=== PATIENT | female | born 1955 | race Caucasian/White ===

== ENCOUNTER 2018-03-16 08:38 | Inpatient (IN) ==
--- NOTE | 2018-03-15 22:19 | Discharge Summary ---
<Precious Zuniga - Last Filed: 03/16/18 08:05> Date of Encounter: 03/16/18 - Discharge Diagnosis (1) Status post total knee replacement, right Priority: Primary Status: Acute (2) Arthritis of knee, right Priority: Primary Status: Acute (3) HTN (hypertension) Priority: Secondary Status: Chronic Qualifiers: Hypertension type: essential hypertension Qualified Code(s): I10 - Essential (primary) hypertension - Hospital Course Hospital course: Ms. Diaz is a 62 year old female - Time Spent with Patient Total time spent providing and/or coordinating discharge services: - Discharge Medications Home Medications: Aspirin Enteric Coated [Aspirin EC] 325 mg PO BID #20 tablet. 03/15/18 [Rx] OxyCODONE Immed Rel [Roxicodone 5 MG] 5 mg PO Q6HR PRN 7 Days #28 tablet [Rx] Etodolac 400 mg PO BID 03/16/18 [History] Metoprolol Succinate [Toprol Xl] 25 mg PO DAILY 03/16/18 [History] Pantoprazole Sodium [Protonix] 40 mg PO DAILY 03/16/18 [History] Allergies/Adverse Reactions: 3 Allergy/AdvReac Type Severity Reaction Status Date / Time No Known Allergies Allergy Verified 03/16/18 09:33 Primary care physician: Maribeth Garcia CNP - Patient Status Disposition: Home Health Service Condition: Good - Discharge Instructions Follow Up With: Maribeth Garcia CNP [Primary Care Provider] - Hemant Payne DO [Family Provider] - <Adryan Clayton Dominik - Last Filed: 03/18/18 06:45> Orders not resulted at time of discharge: Pending orders 03/16/18 00:01 XR knee RT limited 1-2V [XR] Routine H/H [Hemoglobin and Hematocrit] [HEME] Routine Date of Encounter: 03/18/18 Time of Encounter: 06:44 - Discharge Diagnosis (1) Status post total knee replacement, right Priority: Primary Status: Acute (2) Arthritis of knee, right Priority: Primary Status: Chronic (3) HTN (hypertension) Priority: Secondary Status: Chronic Qualifiers: Hypertension type: essential hypertension Qualified Code(s): I10 - Essential (primary) hypertension (4) Acute blood loss anemia Priority: Primary Status: Acute - Hospital Course Hospital course: Ms. Diaz is a 62 year old female Status post right total knee replacement. The patient had an uneventful postoperative course. They received antibiotics and physical therapy and were discharged in stable condition. There will follow -up in the office in 2 weeks. - Time Spent with Patient Total time spent providing and/or coordinating discharge services: Primary care physician: Maribeth Garcia CNP - Patient Status Functional capacity at discharge: uses cane/walker Overall status at discharge: patient is progressing back to baseline
[2018-03-16] MEDS ORDERED: CeFAZolin Syr 2,000MG/20 ML 2,000 MG/20 ML SYRINGE IVPB ONE (08:54)
[2018-03-16] MEDS ORDERED: Albuterol 2.5 MG/3 ML NEBULIZER IH ONE ×2 (08:54→09:32)
--- NOTE | 2018-03-16 08:57 | History & Physical Report ---
Date of Encounter: 03/16/18 Time of Encounter: 08:56 24 Hour HP Update - Instructions Instructions: If the History and Physical is less than 30 days old and was completed prior to A.M. admission and or procedure and has NOT been updated on calendar day of procedure please complete this update prior to performing procedure. - Update Patient reports changes in Medical Condition: No Changes in examination, assessment, or condition: No Changes in Medication: No Preop tests/diagnostics Reviewed: Yes Surgery Remains Indicated: Yes Consent for Planned Operative Procedure(s) Verified: Yes - Pre-Operative Checklist Preoperative Checklist Indicated: No Prophylactic Antibiotic Ordered: Yes Is VTE Prophylaxis Indicated?: Yes
[2018-03-16] MEDS ORDERED: Ringers Solution, Lactated 1,000 ML IVC SCH ×2 (09:00→09:45)
[2018-03-16] MEDS ORDERED: Morphine Sulfate/PF 5mg/10mL Vial ONE (09:09)
[2018-03-16] MEDS ORDERED: ROPIVACAINE HCL/PF 0.5% 30 ML VIAL ONE (09:09)
[2018-03-16] MEDS ORDERED: Ethanol\\Acetic Acid\\Na Ace\\Ben 1,000 ML IRRIG.SOLN IR ONE (09:11)
[2018-03-16] MEDS ORDERED: Propofol 500 MG/50 ML INFUS..BTL ONE (09:21)
--- NOTE | 2018-03-16 09:22 | Anesthesia Evaluation PreOp ---
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 03/15/18 [Rx] OxyCODONE Immed Rel [Roxicodone 5 MG] 5 mg PO Q6HR PRN 7 Days #28 tablet [Rx] 3 Allergy/AdvReac Type Severity Reaction Status Date / Time No Known Allergies Allergy Verified 12/20/17 14:24 - Meds/Allergy Pre-op Review Medications Reviewed: Yes Allergies Reviewed: Yes Beta Blockers on Current Med List: Yes If Beta Blockers taken, Date/Time (Last Dose taken): 03-16-18 metoprolol 6 am Anesthesia Results - Labs Laboratory Tests 03/08/18 03/08/18 03/08/18 08:43 08:43 08:43 WBC 6.8 Hgb 13.2 Hct 39.4 Plt Count 212 PT 10.9 INR 1.0 APTT 31.1 Sodium 138 Potassium 4.5 Chloride 103 Carbon Dioxide 26 BUN 23 Creatinine 0.88 Est GFR ( Amer) > 60 Est GFR (Non-Af Amer) > 60 BUN/Creatinine Ratio 26 Glucose 87 Calculated Osmolality 289 Calcium 10.2 - Imaging EKG: report reviewed, image reviewed (SINUS RHYTHM INFERIOR MYOCARDIAL INFARCTION [40+ ms Q WAVE AND/OR ST/T ABNORMALITY IN II/aVF], PROBABLY OLD) Anesthesia Exam Last Vital Signs Temp 98.1 F 03/16/18 08:57 Pulse 68 03/16/18 08:57 Resp 18 03/16/18 08:57 BP 159/86 03/16/18 08:57 Pulse Ox 99 03/16/18 08:57 Weight: 92 kg NPO (# of Hours): > 8 hrs - HEENT Pupil (Motor): Pupils equal, EOMI Mallampati: III Teeth: Missing Oral Opening: Greater than 3 - DIGITAL SALES ASSISTANT LOC: Oriented DIGITAL SALES ASSISTANT Motor: Normal RUE, Normal LUE, Normal RLE, Normal LLE, Normal Face - Cardiac Rhythm: Regular Murmur: None - Pulmonary Breath Sounds: bilateral Clear Respiratory Effort: Symmetrical Anesthesia Assess/Plan ASA Score: 2 Modified [place] Scale for Level of Consciousness: Cooperative, oriented, and tranquil Anesthetic Plan: Regional (Spinal), MAC Monitoring Plan: Standard Monitors Recovery Plan: PACU
[2018-03-16] MEDS ORDERED: Lidocaine -MPF 2% 2 ML VIAL ONE (09:24)
[2018-03-16] MEDS ORDERED: *HR* FentaNYL (PF) 100 MCG/2 ML VIAL ONE (09:24)
[2018-03-16] MEDS ORDERED: Dexamethasone 4 MG/ML VIAL ONE (09:24)
[2018-03-16] MEDS ORDERED: Ondansetron 4 MG/2 ML VIAL ONE (09:24)
[2018-03-16] MEDS ORDERED: *HR* Midazolam HCl 2 MG/2 ML VIAL ONE (09:24)
[2018-03-16] MEDS ORDERED: *HR* Propofol 200 MG/20 ML VIAL IVP ONE (09:24)
[2018-03-16] MEDS ORDERED: Naloxone 0.4 MG/ML INJ IVP PRN ×2 (09:32→11:54)
[2018-03-16] MEDS ORDERED: *HR* Promethazine 25 MG/ML VIAL IVP PRN ×2 (09:32→18:27)
[2018-03-16] MEDS ORDERED: *HR* OxyCODONE Immed Rel 5 MG TABLET PO PRN (09:32)
[2018-03-16] MEDS ORDERED: Ondansetron 4 MG/2 ML VIAL IVP ONE (09:32)
[2018-03-16] MEDS ORDERED: *HR* HYDROmorphone 2 MG TABLET PO PRN (09:32)
[2018-03-16] MEDS ORDERED: *HR* Meperidine 25 MG/ML SYRINGE IVP PRN (09:32)
--- NOTE | 2018-03-16 10:10 | Anesthesia Procedures ---
Date of Encounter: 03/16/18 Time of Encounter: 09:48 Procedures: Anesthesia - Epidural/Spinal Patient ID/Chart reviewed: Yes Patient examined: Yes Consent Obtained: Yes Supplemental Oxygen: Nasal Cannula Supplemental Oxygen Rate (L/min): 2 Sedation: Versed (mg): 2 Sedation: Fentanyl (mcg): 100 Site Prep: Aseptic Technique, Sterile prep and drape, 0.5% Chlorhexidine/Alcohol Patient position: upright Local Anesthetic: Lidocaine 1% Amount of Local Anesthetic used: 3 Interspace Used: L3-L4 Blood: No CSF: Yes Paresthesia: No Spinal Needle Gauge: 25 (pencan) Spinal Dose: 2.5ml of 0.5%bupivacaine with 0.2mg duramorph Procedure: pt tolerated procedure well. no complications. vss. Vitals + FHT's: Vital Signs/O2 Sat/Glucose, Most Current Temp Pulse Resp BP Pulse Ox 03/16/18 09:38 64 16 142/92 97 03/16/18 08:57 98.1 F 18 159/86 99 - Nerve Block Procedure Date: 03/16/18 Time: 10:10 Surgical Procedure: right tka robotic Checklist: Correct Patient Identifier, Correct procedure, History checked Correct side: Right Blood Thinner: No Monitor Applied: EKG, BP, Pulse Oximetry Supplemental Oxygen via Nasal Cannula (L/min): 2 (see spinal note for versed and fentanyl) Indication: Post Op Analgesia (request per surgeon) Pre-op Neuro Deficits: No Block Type: Other (adductor canal ) Catheter placed: No Sterile Technique: Yes Ultrasound used: Yes Anatomy identified: Yes Visual spread of Local: Yes Neuro Stimulation: No Blood on Needle Aspiration: No Smooth Injection of Local: Yes Pain with Injection of Local: No Prep: Chlorhexadine Needle: 21 x 100 mm Stimuplex Local: Ropivacaine (0.5%) Volume (cc): 30 Number of Attempts: 1 Complications: None/effective block Vitals: Vital Signs/O2 Sat/Glucose, Most Current Temp Pulse Resp BP Pulse Ox 03/16/18 09:38 64 16 142/92 97 03/16/18 08:57 98.1 F 68 18 159/86 99 Comments: pt tolerated procedure well. no complications. vss.
[2018-03-16] MEDS ORDERED: EPHEDrine 50 MG/ML VIAL ONE (10:20)
--- NOTE | 2018-03-16 10:58 | Orthopedic Operative Note ---
Date of procedure: 03/16/18 Pre-op diagnosis: Right knee arthritis Post-op diagnosis: same Procedure: Procedure: Right robotic-assisted Total knee replacement Estimated blood loss: 200 cc Hardware: Metal and polyethylene replacement. Reasnor Femur: 5 Tibia: 5 TS insert: 11 Patella: 36 Exam Under anesthesia: 17 degree flexion contracture 16 degree varus as calculated by the robot full flexion and no instability Procedural Notes: Grade 4 arthritic changes all 3 compartments. Operative procedure: The patient was brought to the operating room and placed on the operating room table. After general anesthesia was administered the operative knee was examined. Findings were noted in the exam under anesthesia. The operative extremity was prepped and draped in sterile surgical fashion. The patient received IV antibiotics prior to skin incision. A standard midline incision was made centered over the patella. The incision was made through the skin and subcutaneous tissue. A medial parapatellar tendon approach was performed. Care was taken to preserve tissue along the medial aspect of the patella. And to protect the patella tendon. The deep MCL was released off the medial tibia. The infra patella fat pad was excised. The patella was everted and cut was made at the level of the insertion of the quadriceps and patella tendon. The patella was sized to a 36 the guide was seated and the lug holes are drilled. Knee was brought into flexion. Patient noted to have grade 4 arthritic changes all 3 compartments. Steinmann pins were placed in the tibia and the femur for the tibial and femoral arrays respectively. Checkpoints were also placed in the tibia and the femur for calculation purposes. The knee including the femur and the tibial registered. Osteophytes, ACL and PCL were excised at this point. Extension and flexion were assessed with a valgus stress components were adjusted on the computer to balance the knee. Femoral cuts were made first with robotic assistance, these included the anterior cut posterior cuts chamfer cuts. Tibial cut was then performed with robotic assistance as well. Bone fragments were removed, as well as the medial and lateral meniscus. The size 5 femoral guide was seated box cut was made lug holes are drilled. The size 5 tibial tray was seated and prepared with the fin cutter. Trial reduction with the 11 TS Vee revealed extension of 0 degree and 6 degree varus full flexion. No varus valgus instability. Trial reduction revealed excellent patella tracking. All trial components were removed all bony surfaces were irrigated. The Tibia was seated followed by the femur, The Vee size 11 was seated and secured patella. Patient had similar findings for motion and stability. The knee was closed by the PA. The knee was then irrigated out with 2 L of pulse irrigation. The extensor mechanism was closed with #2 FiberWire suture and #2 PDS suture. The subcutaneous tissue was then irrigated and closed deep with #1 PDS suture superficially with 0 PDS suture and skin was closed with zip tie The patient was then placed in a sterile dressing and a postoperative brace extubated and transferred to recovery room in stable condition. Anesthesia: GETA Surgeon: Adryan Clayton Was there an magistrate assistant present: Yes Stock Parts Inspector: Precious Zuniga Estimated blood loss (cc): 200 Condition: stable Disposition: PACU
[2018-03-16] MEDS ORDERED: Sennosides 8.6 MG TABLET PO PRN (11:54)
[2018-03-16] MEDS ORDERED: MOM Conc 10 ML UD.LIQ PO PRN (11:54)
[2018-03-16] MEDS ORDERED: *HR* OxyCODONE/APAP 5/325 TABLET PO PRN (11:54)
[2018-03-16] MEDS ORDERED: traMADol 50 MG TABLET PO PRN (11:54)
[2018-03-16] MEDS ORDERED: Ondansetron 4 MG/2 ML VIAL IVP PRN (11:54)
[2018-03-16] MEDS ORDERED: Temazepam 15 MG CAPSULE PO PRN (11:54)
--- NOTE | 2018-03-16 12:03 | Anesthesia Evaluation Post Op ---
Date of Encounter: 03/16/18 Time of Encounter: 12:03 - Vital Signs Vital Signs: Last Vital Signs Temp 97.8 F 03/16/18 11:32 Pulse 62 03/16/18 11:52 Resp 18 03/16/18 11:52 BP 114/67 03/16/18 11:52 Pulse Ox 94 03/16/18 11:52 - Lungs Lungs: Clear Ascult./Percussion - Airway Airway: Non-obstructed - Cardiovascular Regular Rate - Mental Status Mental Status: Alert & Oriented, Answers Appropriately - Pain Pain Scale: 3 - Nausea Vomiting Nausea Vomiting: Not Present - Hydration Hydration: NPO - Discharge PostOp Status: Transfer Patient to floor
[2018-03-16 12:06] LABS: Hematocrit 34.5 % (35.3-44.9); Hemoglobin 11.7 g/dL (11.5-15.4)
[2018-03-16] MEDS: Ringers Solution, Lactated 1,000 ML IVC SCH (12:36)
[2018-03-16] MEDS: *HR* Enoxaparin 30 MG/0.3 ML SYRINGE SQ SCH (17:26)
[2018-03-16] MEDS ORDERED: *HR* Enoxaparin 30 MG/0.3 ML SYRINGE SQ SCH (18:00)
[2018-03-17 01:35] LABS: Hematocrit 31.9 % (35.3-44.9); Hemoglobin 10.6 g/dL (11.5-15.4)
[2018-03-17 01:49] LABS: BUN/Creatinine Ratio 33 (6-26); Blood Urea Nitrogen 27 mg/dL (8-23); Calcium 9.2 mg/dL (8.6-10.3); Carbon Dioxide 27 mEq/L (23-29); Chloride 104 mEq/L (98-107); Glucose 141 mg/dL (70-105); Osmolality,Calculated 293 (280-300); Sodium 138 mEq/L (136-145); eGFR For African Americans > 60 (> 60); eGFR For Non-African Americans > 60 (> 60)
[2018-03-17] MEDS: Ringers Solution, Lactated 1,000 ML IVC SCH (05:29)
[2018-03-17] MEDS: *HR* Enoxaparin 30 MG/0.3 ML SYRINGE SQ SCH ×2 (05:54→17:54)
--- NOTE | 2018-03-17 08:24 | Orthopedics Progress Note ---
Date of Encounter: 03/17/18 Time of Encounter: 08:23 - Assessment and Plan (1) Status post total knee replacement, right Current Visit: No Status: Acute (2) Arthritis of knee, right Current Visit: No Status: Chronic (3) HTN (hypertension) Current Visit: No Status: Chronic Qualifiers: Hypertension type: essential hypertension Qualified Code(s): I10 - Essential (primary) hypertension Subjective Interval history: Patient was seen this morning doing well without complaints. Afebrile vital signs stable. Operative extremity: Neurovascularly intact Dressing clean dry and intact Calves nontender Assessment and plan: Continue with postoperative care Hematocrit 31 Objective Vital signs: Vital Signs Temp Pulse Resp BP Pulse Ox 03/17/18 08:05 97.6 F 66 18 100/65 95 03/17/18 03:38 97.6 F 72 14 93/61 95 03/16/18 23:04 97.5 F L 73 14 98/63 94 03/16/18 18:50 97.8 F 73 16 108/75 95 03/16/18 15:40 97.5 F L 69 17 119/73 95 03/16/18 14:34 97.5 F L 68 14 119/73 97 03/16/18 13:25 97.5 F L 62 14 125/82 89 03/16/18 12:52 97.4 F L 60 14 110/67 94 03/16/18 12:16 97.6 F 62 14 120/76 94 03/16/18 12:02 97.3 F L 61 16 115/68 94 03/16/18 11:52 62 18 114/67 94 03/16/18 11:42 67 16 110/67 97 03/16/18 11:32 97.8 F 69 14 108/66 94 03/16/18 09:38 64 16 142/92 97 03/16/18 08:57 98.1 F 68 18 159/86 99 Intake and Output 03/16/18 03/17/18 03/17/18 23:59 07:59 15:59 Intake Total 410 / 410 1250 / 1250 Output Total 210 / 210 800 / 800 Balance 200 / 200 450 / 450 Intake: IV Fluids 100 / 100 1000 / 1000 Lactated Ringers 1,000 ML @ 75 1000 / 1000 mls/hr IVC .[id number] [facility] Rx#: [id number] Ancef 2,000 MG In 0.9 % Sodium 100 / 100 Chloride 100 ML @ 200 mls/hr IVPB Q8HR [facility] Rx#:[id number] Oral 310 / 310 250 / 250 Output: Urine 0 / 0 800 / 800 Emesis 100 / 100 Other 110 / 110 - Labs CBC & BMP: 03/17/18 01:00 03/17/18 01:00 Labs: Abnormal lab results Hgb 10.6 g/dL (11.5-15.4) L 03/17/18 01:00 Hct 31.9 % (35.3-44.9) L 03/17/18 01:00 BUN 27 mg/dL (8-23) H 03/17/18 01:00 BUN/Creatinine Ratio 33 (6-26) H 03/17/18 01:00 Glucose 141 mg/dL (70-105) H 03/17/18 01:00 - VTE Documentation of Mechanical Device: Venous foot pump, device Consult Discharge Plan - Plan Referrals: Maribeth Garcia CNP [Primary Care Provider] - Hemant Payne DO [Family Provider] -
[2018-03-17] MEDS: Metoprolol XL (24 HR) Succ 25 MG TAB.ER.24H PO SCH (08:51)
[2018-03-17] MEDS: *HR* OxyCODONE Immed Rel 5 MG TABLET PO PRN ×2 (14:52→20:58)
--- NOTE | 2018-03-17 21:17 | Event Note ---
Date of Encounter: 03/17/18 Time of Encounter: 12:30 PCR - POD#1 R TKR - Patient seen at bedside. Patient was seen this morning doing well, without complaints. Afebrile, vital signs stable. Labs reviewed. H/H - stable, asymptomatic Pain control: adequate Participating in PT. All questions and concerns addressed. Educated on use of incentive spirometer. Encouraged ambulation and proper hydration. Patient educated on post-operative restrictions and post-operative care. Assessment and plan: Continue with postoperative care Discharge plan: Home, discharge WEDNESDAY.
[2018-03-18 01:18] LABS: Hematocrit 26.8 % (35.3-44.9); Hemoglobin 8.9 g/dL (11.5-15.4)
[2018-03-18 01:37] LABS: BUN/Creatinine Ratio 30 (6-26); Blood Urea Nitrogen 20 mg/dL (8-23); Calcium 8.6 mg/dL (8.6-10.3); Carbon Dioxide 28 mEq/L (23-29); Chloride 100 mEq/L (98-107); Glucose 129 mg/dL (70-105); Osmolality,Calculated 282 (280-300); Potassium 4.2 mEq/L (3.5-5.1); Sodium 134 mEq/L (136-145); eGFR For African Americans > 60 (> 60); eGFR For Non-African Americans > 60 (> 60)
[2018-03-18] MEDS: *HR* OxyCODONE Immed Rel 5 MG TABLET PO PRN ×2 (06:21→10:12)
[2018-03-18 06:22] VITALS: BP 155/78
[2018-03-18] MEDS: *HR* Enoxaparin 30 MG/0.3 ML SYRINGE SQ SCH (06:22)
--- NOTE | 2018-03-18 06:46 | Orthopedics Progress Note ---
Date of Encounter: 03/18/18 Time of Encounter: 06:45 - Assessment and Plan (1) Status post total knee replacement, right Current Visit: No Status: Acute (2) Arthritis of knee, right Current Visit: No Status: Chronic (3) HTN (hypertension) Current Visit: No Status: Chronic Qualifiers: Hypertension type: essential hypertension Qualified Code(s): I10 - Essential (primary) hypertension (4) Acute blood loss anemia Current Visit: Yes Status: Acute Subjective Interval history: Patient was seen this morning doing well without complaints. Afebrile vital signs stable. Operative extremity: Neurovascularly intact Dressing clean dry and intact Calves nontender Assessment and plan: Continue with postoperative care Hemoglobin 8.9 asymptomatic, discharge today Objective Vital signs: Vital Signs Temp Pulse Resp BP Pulse Ox 03/18/18 06:17 98.3 F 80 18 155/78 94 03/18/18 03:26 98.7 F 80 18 166/77 95 03/17/18 22:37 98.1 F 71 18 150/78 98 03/17/18 19:02 99.3 F 71 16 129/73 98 03/17/18 15:44 98.0 F 68 17 102/57 96 03/17/18 11:54 97.8 F 62 17 106/67 95 03/17/18 09:00 96 03/17/18 08:05 97.6 F 66 18 100/65 95 Intake and Output 03/17/18 03/17/18 03/18/18 15:59 23:59 07:59 Intake Total 480 / 480 1690 / 1690 150 / 150 Output Total 0 / 0 Balance 480 / 480 1690 / 1690 150 / 150 Intake: IV Fluids 1000 / 1000 Lactated Ringers 1,000 ML @ 75 1000 / 1000 mls/hr IVC .[id number] [facility] Rx#: [id number] Oral 480 / 480 690 / 690 150 / 150 Output: Urine 0 / 0 Other: Meal Breakfast Dinner Percent of Meal Consumed 100% 90% # Voids 1 - Labs CBC & BMP: 03/18/18 00:45 03/18/18 00:45 Labs: Abnormal lab results Hgb 8.9 g/dL (11.5-15.4) L D 03/18/18 00:45 Hct 26.8 % (35.3-44.9) L 03/18/18 00:45 Sodium 134 mEq/L (136-145) L 03/18/18 00:45 BUN/Creatinine Ratio 30 (6-26) H 03/18/18 00:45 Glucose 129 mg/dL (70-105) H 03/18/18 00:45 - VTE Documentation of Mechanical Device: Venous foot pump, device Consult Discharge Plan - Plan Referrals: Maribeth Garcia CNP [Primary Care Provider] - Hemant Payne DO [Family Provider] -
[2018-03-18] MEDS: Metoprolol XL (24 HR) Succ 25 MG TAB.ER.24H PO SCH (10:13)
== END 2018-03-18 11:03 | disposition home health service (06) | DRG 470 ==
LOC: SAMDAY 08:38 → 3NENU 11:58
PROVIDERS: ADMIT Orthopaedic Surgery; ATTEND Orthopaedic Surgery

== ENCOUNTER 2018-07-25 11:15 | Inpatient (IN) ==
[2018-07-25] MEDS ORDERED: *HR* Rocuronium Bromide 50 MG/5 ML VIAL ONE (11:56)
[2018-07-25] MEDS ORDERED: *HR* Succinylcholine 200 MG/10 ML VIAL IVP ONE (11:56)
[2018-07-25] MEDS ORDERED: Ondansetron 4 MG/2 ML VIAL ONE (11:57)
[2018-07-25] MEDS ORDERED: Dexamethasone 4 MG/ML VIAL ONE (11:57)
[2018-07-25] MEDS ORDERED: *HR* FentaNYL (PF) 100 MCG/2 ML VIAL ONE (11:57)
[2018-07-25] MEDS ORDERED: *HR* Midazolam HCl 2 MG/2 ML VIAL ONE (11:57)
[2018-07-25] MEDS ORDERED: *HR* Propofol 200 MG/20 ML VIAL IVP ONE ×3 (11:57→14:51)
[2018-07-25] MEDS ORDERED: Lidocaine -MPF 2% 2 ML VIAL ONE (11:57)
[2018-07-25] MEDS ORDERED: CeFAZolin Syr 2,000MG/20 ML 2,000 MG/20 ML SYRINGE IVPB ONE (11:57)
--- NOTE | 2018-07-25 11:57 | Anesthesia Evaluation PreOp ---
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 HX Other Medical History: Thyroid, GERD Anesthesia History: Past Anesthesia, Problems (PONV after SAB with right TKR) Alcohol Use: none Drug use: none Medications and Allergies Etodolac 400 mg PO BID 03/16/18 [History] Metoprolol Succinate [Toprol Xl] 25 mg PO DAILY 03/16/18 [History] Cholecalciferol (Vitamin D3) [Vitamin D] 50,000 unit PO QWEEK 07/25/18 [History] Levothyroxine Sodium 25 mcg PO DAILY 07/25/18 [History] Metaxalone 800 mg PO TID PRN 07/25/18 [History] Rosuvastatin Calcium 20 mg PO HS 07/25/18 [History] hydroCHLOROthiazide [Hydrochlorothiazide] 25 mg PO DAILY 07/25/18 [History] Allergy/AdvReac Type Severity Reaction Status Date / Time No Known Allergies Allergy Verified 07/25/18 12:35 - Meds/Allergy Pre-op Review Medications Reviewed: Yes Allergies Reviewed: Yes Beta Blockers on Current Med List: Yes If Beta Blockers taken, Date/Time (Last Dose taken): 07/25/2018 at 0730 Anesthesia Results - Labs Laboratory Tests 07/18/18 07/18/18 07/18/18 08:42 08:42 08:42 WBC 5.7 Hgb 12.5 Hct 38.5 Plt Count 210 PT 11.5 INR 1.0 APTT 30.3 Sodium 135 L Potassium 4.1 BUN 21 Creatinine 0.86 - Imaging EKG: report reviewed (03/08/2018 SINUS BRADYCARDIA WITH SINUS ARRHYTHMIA PROBABLE INFERIOR MYOCARDIAL INFARCTION, PROBABLY OLD) Anesthesia Exam Height: 5'9'' Weight: 200 lbs NPO (# of Hours): 8 Pain Scale: 0 Pain Scale Used: Numeric (1 - 10) - HEENT Pupil (Motor): EOMI Mallampati: III Teeth: Normal, Missing Oral Opening: Greater than 3 - DEPUTY CHIEF EXECUTIVE LOC: Oriented DEPUTY CHIEF EXECUTIVE Motor: Normal RUE, Normal LUE, Normal RLE, Normal LLE, Normal Face DEPUTY CHIEF EXECUTIVE Sensory: Normal: RUE, LUE, RLE, LLE, Face - Cardiac Rhythm: Regular Murmur: None - Pulmonary Breath Sounds: bilateral Clear Respiratory Effort: Symmetrical Anesthesia Assess/Plan ASA Score: 2 Level of consciousness: Cooperative, Oriented, Tranquil Anesthetic Plan: Spinal Regional Nerve Block Plan: Adductor canal, IPACK Monitoring Plan: Standard Monitors Recovery Plan: PACU
[2018-07-25] MEDS ORDERED: Ringers Solution, Lactated 1,000 ML IVC SCH ×2 (12:00→16:52)
--- NOTE | 2018-07-25 13:07 | History & Physical Report ---
Date of Encounter: 07/25/18 Time of Encounter: 13:07 24 Hour HP Update - Instructions Instructions: If the History and Physical is less than 30 days old and was completed prior to A.M. admission and or procedure and has NOT been updated on calendar day of procedure please complete this update prior to performing procedure. - Update Patient reports changes in Medical Condition: No Changes in examination, assessment, or condition: No Changes in Medication: No Preop tests/diagnostics Reviewed: Yes Consent for Planned Operative Procedure(s) Verified: Yes - Pre-Operative Checklist Preoperative Checklist Indicated: No Prophylactic Antibiotic Ordered: Yes Is VTE Prophylaxis Indicated?: Yes
[2018-07-25] MEDS ORDERED: *HR* Morphine Sulfate/PF 10 MG/10 ML AMPUL ONE (13:15)
[2018-07-25] MEDS ORDERED: Lidocaine -MPF 1% 5 ML AMPUL ONE (13:16)
[2018-07-25] MEDS ORDERED: Bupivacaine/Clonidine Syringe 1 EACH SYRINGE ONE (13:16)
[2018-07-25] MEDS ORDERED: ROPIVACAINE HCL/PF 0.5% 30 ML VIAL ONE (13:16)
[2018-07-25] MEDS ORDERED: Ethanol\\Acetic Acid\\Na Ace\\Ben 1,000 ML IRRIG.SOLN IR ONE (13:29)
--- NOTE | 2018-07-25 14:00 | Discharge Summary ---
<Precious Zuniga - Last Filed: 07/25/18 13:58> Orders not resulted at time of discharge: Pending orders 07/25/18 08:14 XR knee LT 1-2V [XR] Routine 07/25/18 08:15 H/H [Hemoglobin and Hematocrit] [HEME] Routine 07/25/18 12:47 US anesthesia pain block [US] Routine Date of Encounter: 07/25/18 - Discharge Diagnosis (1) Arthritis of knee, left Priority: Primary Status: Acute (2) Status post total knee replacement, left Priority: Primary Status: Acute Comments: Opsite dressing, leave intact until first post-operative visit. If dressing becomes >50% saturated, contact office, remove dressing and place appropriate dressing in its place. Do not allow for dressing to get wet. Zipline/Flavia in place, plan to remove at post-operative day #14-16. Total Joint Precautions x 6 weeks Apply cold therapy wrap 3-6x/day for 20 minutes at a time. Encourage ambulation throughout the day Use Incentive spirometer 10x/hour. Elevate affected extremity above heart as tolerated. Brace: Wear knee immobilizer at night until first post-operative appt. (3) HTN (hypertension) Priority: Secondary Status: Chronic Qualifiers: Hypertension type: essential hypertension Qualified Code(s): I10 - Essential (primary) hypertension (4) Hypothyroid Priority: Secondary Status: Chronic Qualifiers: Hypothyroidism type: unspecified Qualified Code(s): E03.9 - Hypothyroidism, unspecified - Hospital Course Hospital course: Ms. Diaz is a 62 year old female - Time Spent with Patient Total time spent providing and/or coordinating discharge services: - Discharge Medications Home Medications: Metoprolol Succinate [Toprol Xl] 25 mg PO DAILY 03/16/18 [History] Aspirin Enteric Coated [Aspirin EC] 325 mg PO BID #20 tablet. 07/25/18 [Rx] Cholecalciferol (Vitamin D3) [Vitamin D3] 50,000 unit PO MO 07/25/18 [History] Levothyroxine Sodium 25 mcg PO DAILY 07/25/18 [History] Metaxalone 800 mg PO TID PRN 07/25/18 [History] Omeprazole [PriLOSEC] 40 mg PO DAILY 07/25/18 [History] OxyCODONE Immed Rel [Roxicodone 5 MG] 5 mg PO Q6HR PRN 7 Days #28 tablet 07/25/18 [Rx] Rosuvastatin Calcium 20 mg PO HS 07/25/18 [History] hydroCHLOROthiazide [Hydrochlorothiazide] 25 mg PO DAILY 07/25/18 [History] Allergies/Adverse Reactions: Allergy/AdvReac Type Severity Reaction Status Date / Time No Known Allergies Allergy Verified 07/25/18 12:35 Primary care physician: Maribeth Garcia CNP - Patient Status Disposition: Home, Self-Care Condition: Good - Discharge Instructions Instructions: Total Knee Replacement (DC) Follow Up With: Maribeth Garcia CNP [Primary Care Provider] - <Cecille Can - Last Filed: 07/26/18 16:07> Orders not resulted at time of discharge: Pending orders 07/25/18 12:47 US anesthesia pain block [US] Routine 07/25/18 15:01 Surgical Pathology [PTH] Routine Date of Encounter: 07/26/18 Time of Encounter: 12:00 - Discharge Diagnosis (1) Status post total knee replacement, left Status: Acute (2) Arthritis of knee, left Priority: Primary Status: Acute (3) Acute blood loss anemia Priority: Secondary Status: Acute (4) Status post total knee replacement, right Priority: Secondary Status: Acute (5) Arthritis of knee, right Priority: Secondary Status: Chronic (6) HTN (hypertension) Priority: Secondary Status: Chronic Qualifiers: Hypertension type: essential hypertension Qualified Code(s): I10 - Essential (primary) hypertension (7) Hypothyroid Priority: Secondary Status: Chronic Qualifiers: Hypothyroidism type: unspecified Qualified Code(s): E03.9 - Hypothyroidism, unspecified - Hospital Course Hospital course: Ms. Diaz is a 62 year old female status post left TKR robotic 07/25/18 with a history ofHTN, anemia, hypothyroidism . Patient had uneventful postoperative course. She participated in therapy. Stable for discharge. Patient seen at bedside, without complaints. A&O x 3 Dressings c/d/i with no drainage. No calf tenderness to palpation. grossly NV intact distally. Afebrile, vital signs stable. Labs reviewed. H/H 9.4/28.2- stable, asymptomatic Pain control: adequate Participating in PT. All questions and concerns addressed. Educated on use of incentive spirometer. Encouraged ambulation and proper hydration. Patient educated on post-operative restrictions and post-operative care. Assessment and plan: Continue with postoperative care Discharge plan: Home with outpatient therapy, discharge today. - Time Spent with Patient Total time spent providing and/or coordinating discharge services: Date of admission: 07/25/18 16:07 Primary care physician: Maribeth Garcia CNP Consults: 07/25/18 16:52 Consult to Occupational Therapy [CONS] Routine Comment: Evaluate, develop and implement POC Reason for Consult: post knee surgery Does patient have active BEDREST order?: No Is patient medically & hemodynamically stable?: Yes Consult to Orthopedic Navigator [CONS] [CONS] Routine Consult to Physical Therapy [CONS] Routine Comment: Evaluate, develop and impliment POC Reason for Consult: post knee surgery Does patient have active BEDREST order?: No Is patient medically & hemodynamically stable?: Yes Consult to Hander In [CONS] Routine Reason for SW Consult: post op joint replacement RT Post Op Consult [CONS] Routine 07/25/18 17:03 Consult to Pastoral Services [CONS] Routine Comment: Discharging clinician: Adryan Clayton Anticipated date of discharge: 07/26/18 Labs on day of discharge: Labs from last 24 hours 07/26/18 07/26/18 05:22 05:22 Hgb 9.4 L Hct 28.2 L Sodium 135 L Potassium 4.0 Chloride 103 Carbon Dioxide 24 BUN 16 Creatinine 0.60 Est GFR ( Amer) > 60 Est GFR (Non-Af Amer) > 60 BUN/Creatinine Ratio 27 H Glucose 170 H Calculated Osmolality 285 Calcium 8.7 - Impressions ITS Impressions Knee X-Ray 07/25/18 08:14 IMPRESSION: 1. Status post total left knee arthroplasty. 2. No hardware failure or fracture. 3. No unexpected retained radiopaque foreign body. 4. Correlate with procedural report. D/ / Max Tubbs / Max Tubbs Interpreting Provider: Max Tubbs - Patient Status Functional capacity at discharge: uses cane/walker Overall status at discharge: patient is back to baseline - Diet and Activity Activity: as per physical therapy Diet: advance to your usual diet
--- NOTE | 2018-07-25 14:03 | Anesthesia Procedures ---
Date of Encounter: 07/25/18 Time of Encounter: 13:40 Procedures: Anesthesia - Epidural/Spinal Patient ID/Chart reviewed: Yes Patient examined: Yes Patient position: upright Local Anesthetic: Lidocaine 1% Amount of Local Anesthetic used: 2 Spinal Dose: 2ml 0.5% bupi. with 100mcgs duramorph Procedure: left total knee - Nerve Block Procedure Date: 07/25/18 Time: 13:40 Surgical Procedure: left total knee Checklist: Correct Patient Identifier, Correct procedure, History checked Correct side: Left Blood Thinner: No Monitor Applied: EKG, BP, Pulse Oximetry Supplemental Oxygen via Nasal Cannula (L/min): 1 Sedation: Versed (mg): 2 Sedation: Fentanyl (mcg): 50 Indication: Post Op Analgesia Block Type: Other (adductor canal and iPack) Catheter placed: No Sterile Technique: Yes Ultrasound used: Yes Anatomy identified: Yes Visual spread of Local: Yes Neuro Stimulation: No Blood on Needle Aspiration: No Smooth Injection of Local: Yes Pain with Injection of Local: No Prep: Chlorhexadine Needle: 21 x 100 mm Stimuplex Local: 0.25% Bupivicaine w/Clonidine 20 mcg/cc (20 ml), Ropivacaine (25 ml 0.5% with 8mg of decadron) Volume (cc): 45 Number of Attempts: 1 Complications: None/effective block Vitals: Vital Signs/O2 Sat, Most Current Temp Pulse Resp BP Pulse Ox 98.2 F 58 18 110/68 99 07/25/18 11:58 07/25/18 13:40 07/25/18 13:40 07/25/18 13:40 07/25/18 13:40
--- NOTE | 2018-07-25 14:57 | Orthopedic Operative Note ---
Date of procedure: 07/25/18 Pre-op diagnosis: Left knee arthritis Post-op diagnosis: same Procedure: Procedure: Left robotic-assisted Total knee replacement Estimated blood loss: 200 cc Hardware: Metal and polyethylene replacement. [place] Femur: 5 Tibia: 5 TS insert: 9 Patella: 36 Exam Under anesthesia: 9 degrees flexion contracture 14 degree varus as calculated by the robot full flexion and no instability Procedural Notes: Grade 4 arthritic changes all 3 components. Operative procedure: The patient was brought to the operating room and placed on the operating room table. After general anesthesia was administered the operative knee was examined. Findings were noted in the exam under anesthesia. The operative extremity was prepped and draped in sterile surgical fashion. The patient received IV antibiotics prior to skin incision. A standard midline incision was made centered over the patella. The incision was made through the skin and subcutaneous tissue. A medial parapatellar tendon approach was performed. Care was taken to preserve tissue along the medial aspect of the patella. And to protect the patella tendon. The deep MCL was released off the medial tibia. The infra patella fat pad was excised. The patella was everted and cut was made at the level of the insertion of the quadriceps and patella tendon. The patella was sized the guide was seated and the lug holes are drilled. Knee was brought into flexion. Patient noted to have grade 4 arthritic changes all 3 compartments. Steinmann pins were placed in the tibia and the femur for the tibial and femoral arrays respectively. Checkpoints were also placed in the tibia and the femur for calculation purposes. The knee including the femur and the tibial registered. Osteophytes, ACL and PCL were excised at this point. Extension and flexion were assessed with a valgus stress components were adjusted on the computer to balance the knee. Femoral cuts were made first with robotic assistance, these included the anterior cut posterior cuts chamfer cuts. Tibial cut was then performed with robotic assistance as well. Bone fragments were removed, as well as the medial and lateral meniscus. The size 5 femoral guide was seated box cut was made lug holes are drilled. The size 5 tibial tray was seated and prepared with the fin cutter. Trial reduction with the 9 TS Vee revealed extension of 0 degree and 2 degrees varus full flexion. No varus valgus instability. Trial reduction revealed excellent patella tracking. All trial components were removed all bony surfaces were irrigated. The Tibia was seated followed by the femur, The selected Vee size was seated and secured patella. Patient had similar findings for motion and stability. The knee was closed by the PA. The knee was then irrigated out with 2 L of pulse irrigation. The extensor mechanism was closed with #2 FiberWire suture and #2 PDS suture. The subcutaneous tissue was then irrigated and closed deep with #1 PDS suture superficially with 0 PDS suture and skin was closed with zip tie The patient was then placed in a sterile dressing and a postoperative brace extubated and transferred to recovery room in stable condition. Anesthesia: spinal Surgeon: Adryan Clayton Was there an furniture removalist's assistant present: No Estimated blood loss (cc): 200 Condition: stable Disposition: PACU
[2018-07-25] MEDS ORDERED: *HR* HYDROmorphone (PF) 1 MG/ML SYRINGE IVP PRN (15:09)
[2018-07-25] MEDS ORDERED: *HR* Promethazine 25 MG/ML VIAL IVP PRN (15:09)
[2018-07-25] MEDS ORDERED: *HR* OxyCODONE Immed Rel 5 MG TABLET PO PRN ×2 (15:09→16:52)
[2018-07-25 15:54] LABS: Hematocrit 29.8 % (35.3-44.9); Hemoglobin 9.7 g/dL (11.5-15.4)
--- NOTE | 2018-07-25 16:00 | Anesthesia Evaluation Post Op ---
Date of Encounter: 07/25/18 Time of Encounter: 15:59 - Vital Signs Vital Signs: Last Vital Signs Temp 97.9 F 07/25/18 15:48 Pulse 16 07/25/18 15:48 Resp 53 07/25/18 15:48 BP 117/68 07/25/18 15:48 Pulse Ox 95 07/25/18 15:48 - Lungs Lungs: Clear Ascult./Percussion - Airway Airway: Non-obstructed - Cardiovascular Regular Rate - Mental Status Mental Status: Alert & Oriented, Answers Appropriately - Pain Pain Scale: 0 Pain Scale used: Crane-Alexandra (Faces) - Nausea Vomiting Nausea Vomiting: Not Present - Hydration Hydration: Tolerates oral liquids - Discharge PostOp Status: Transfer Patient to floor
[2018-07-25] MEDS ORDERED: Sennosides 8.6 MG TABLET PO PRN (16:52)
[2018-07-25] MEDS ORDERED: Naloxone 0.4 MG/ML INJ IVP PRN (16:52)
[2018-07-25] MEDS ORDERED: MOM Conc 10 ML UD.LIQ PO PRN (16:52)
[2018-07-25] MEDS ORDERED: *HR* OxyCODONE/APAP 5/325 TABLET PO PRN (16:52)
[2018-07-25] MEDS ORDERED: Temazepam 15 MG CAPSULE PO PRN (16:52)
[2018-07-25] MEDS ORDERED: Ondansetron 4 MG/2 ML VIAL IVP PRN (16:52)
[2018-07-25] MEDS ORDERED: traMADol 50 MG TABLET PO PRN (16:52)
[2018-07-25] MEDS: *HR* Enoxaparin 30 MG/0.3 ML SYRINGE SQ SCH (17:56)
[2018-07-25] MEDS ORDERED: *HR* Enoxaparin 30 MG/0.3 ML SYRINGE SQ SCH (18:00)
[2018-07-26] MEDS: *HR* Enoxaparin 30 MG/0.3 ML SYRINGE SQ SCH (05:09)
[2018-07-26 05:47] LABS: Hematocrit 28.2 % (35.3-44.9); Hemoglobin 9.4 g/dL (11.5-15.4)
[2018-07-26 06:12] LABS: BUN/Creatinine Ratio 27 (6-26); Blood Urea Nitrogen 16 mg/dL (8-23); Calcium 8.7 mg/dL (8.6-10.3); Carbon Dioxide 24 mEq/L (23-29); Chloride 103 mEq/L (98-107); Glucose 170 mg/dL (70-105); Osmolality,Calculated 285 (280-300); Sodium 135 mEq/L (136-145); eGFR For Non-African Americans > 60 (> 60)
--- NOTE | 2018-07-26 06:47 | Orthopedics Progress Note ---
Date of Encounter: 07/26/18 Time of Encounter: 06:47 - Assessment and Plan (1) Hypothyroid Current Visit: Yes Status: Chronic Qualifiers: Hypothyroidism type: unspecified Qualified Code(s): E03.9 - Hypothyroidism, unspecified (2) Acute blood loss anemia Current Visit: No Status: Acute Subjective Interval history: Patient was seen this morning doing well without complaints. Afebrile vital signs stable. Operative extremity: Neurovascularly intact Dressing clean dry and intact Calves nontender Assessment and plan: Continue with postoperative care Hemoglobin 9.4 Objective Vital signs: Vital Signs Temp Pulse Resp BP Pulse Ox 07/26/18 04:59 98.0 F 62 16 105/68 95 07/25/18 23:25 97.9 F 56 16 100/61 94 07/25/18 21:00 98 07/25/18 19:00 62 16 111/69 98 07/25/18 18:00 51 16 117/67 07/25/18 17:10 16 16 129/73 95 07/25/18 16:40 48 14 130/74 98 07/25/18 16:10 49 14 111/50 95 07/25/18 15:58 97.9 F 52 15 124/68 96 07/25/18 15:48 97.9 F 53 15 117/68 95 07/25/18 15:38 55 19 114/69 100 07/25/18 15:28 52 14 115/66 94 07/25/18 15:18 98.1 F 58 16 107/59 99 07/25/18 13:40 58 18 110/68 99 07/25/18 13:19 62 18 123/74 97 07/25/18 11:58 98.2 F 64 18 139/67 98 07/25/18 11:25 97.9 F 100 16 100/61 92 Intake and Output 07/25/18 07/25/18 07/26/18 15:59 23:59 07:59 Intake Total 100 / 100 900 / 900 Output Total 200 / 200 400 / 400 Balance -200 / -200 100 / 100 500 / 500 Intake: IV Fluids 100 / 100 100 / 100 Ancef 2,000 MG In 0.9 % Sodium 100 / 100 100 / 100 Chloride 100 ML @ 200 mls/hr IVPB Q8H [facility] Rx#:[id number] Oral 800 / 800 Output: Urine 400 / 400 Estimated Blood Loss 200 / 200 Other: Weight 90.718 kg 90.72 kg Patient Weight 07/26/18 23:59 Weight 90.72 kg - Labs CBC & BMP: 07/26/18 05:22 07/26/18 05:22 Labs: Abnormal lab results Hgb 9.4 g/dL (11.5-15.4) L 07/26/18 05:22 Hct 28.2 % (35.3-44.9) L 07/26/18 05:22 Sodium 135 mEq/L (136-145) L 07/26/18 05:22 BUN/Creatinine Ratio 27 (6-26) H 07/26/18 05:22 Glucose 170 mg/dL (70-105) H 07/26/18 05:22 Consult Discharge Plan - Plan Referrals: Maribeth Garcia, PUBLIC HEALTH DOCTOR [Primary Care Provider] -
[2018-07-26] MEDS ORDERED: hydroCHLOROthiazide 25 MG TABLET PO SCH (09:00)
[2018-07-26] MEDS ORDERED: Metoprolol XL (24 HR) Succ 25 MG TAB.ER.24H PO SCH (09:00)
[2018-07-26] MEDS ORDERED: Levothyroxine 25 MCG TABLET PO SCH (09:00)
[2018-07-26] MEDS ORDERED: Cholecalciferol (D-3) 1,000 UNIT TABLET PO SCH (09:00)
[2018-07-26 11:06] VITALS: BP 120/74
== END 2018-07-26 14:00 | disposition home or self-care (01) | DRG 470 ==
LOC: SAMDAY 11:15 → 3NENU 16:07
PROVIDERS: ADMIT Orthopaedic Surgery; ATTEND Orthopaedic Surgery